=== PATIENT | female | born 1955 | race Caucasian/White ===

== ENCOUNTER 2018-05-27 10:19 | Emergency (ER) | payer SELFPAY ==
[2018-05-27] MEDS ORDERED: Adenosine 6 MG/2 ML VIAL ONE (10:37)
[2018-05-27 10:58] LABS: #Basophils 0.1 thou/uL (0.0-0.2); #Eosinphils 0.4 thou/uL (0.0-0.7); #Lymphocytes 2.5 thou/uL (1.20-3.40); #Monocytes 0.7 thou/uL (0.11-0.59); #Neutrophils 4.3 thou/uL (1.40-6.50); %Basophils 0.9 % (0.0-1.0); %Eosinophils 4.7 % (0.0-10.0); %Lymphocytes 31.6 % (21.0-51.0); %Monocytes 8.7 % (0.0-10.0); %Neutrophils 54.1 % (42.0-75.0); Mean Corpuscular HGB CONC 33.4 g/dL (32.0-36.0); Mean Corpuscular Hemoglobin 28.4 pg (27.0-31.0); Mean Corpuscular Volume 85.2 fL (78.0-98.0); Platelet Count 297 thou/uL (130-400); RBC Distribution Width 11.5 % (11.5-14.5); Red Blood Cell (RBC) Count 5.26 mill/uL (4.20-5.40); White Blood Cell (WBC) Count 7.9 thou/uL (4.8-10.8)
[2018-05-27 11:00] LABS: ALT (SGPT) 26 U/L (8-55); AST (SGOT) 21 U/L (5-34); Albumin 4.6 g/dL (3.4-4.8); Alkaline Phosphatase 86 U/L (40-150); Anion Gap 15 mmol/L (10-20); BUN (Urea Nitrogen) 12 mg/dL (9.8-20.1); Bilirubin, Total 0.9 mg/dL (0.2-1.2); Calc. Creatinine Clearance 0 mL/min (70-130); Carbon Dioxide 23 mmol/L (23-31); Chloride 104 mmol/L (98-107); Estimated GFR-MDRD 82; Globulin 3.2 g/dL (2.4-3.5); Glucose 113 mg/dL (80-115); Potassium 3.8 mmol/L (3.5-5.1); Protein, Total 7.8 g/dL (6.0-8.3); Sodium 138 mmol/L (136-145)
[2018-05-27 11:03] LABS: Troponin I 0.014 ng/mL (< 0.028)
[2018-05-27 11:07] LABS: INR-International Normal Ratio 0.9; PTT 24.6 SEC (22.9-36.1); Prothrombin Time 12.1 SEC (12.0-14.7)
[2018-05-27 11:14] LABS: CK (CPK) 74 U/L (29-168)
[2018-05-27 11:17] LABS: CKMB 1.7 ng/mL (0-6.6)
[2018-05-27 11:39] LABS: Thyroid Stimulating Hormone 0.1348 uIU/mL (0.35-4.94)
--- NOTE | 2018-05-27 12:50 | RAD ---
PA AND LATERAL CHEST XRAY: DATE: 05/27/2018. History Chest pain. COMPARISON: 10/11/2014. FINDINGS: Cardiac silhouette is mildly enlarged. The pulmonary vasculature is within normal limits. Surgical clips again overlie the left axillary region. Vascular calcifications are seen in the thoracic aorta . There are surgical clips overlying the left breast with deformity of the left breast probably rela radha to prior lumpectomy. IMPRESSION: 1. No acute cardiopulmonary process. 2. Cardiomegaly. POS: [id number]
[2018-05-27 16:01] LABS: Free T4 (Free Thyroxine) 1.23 ng/dL (0.70-1.48)
== END 2018-05-27 12:12 | disposition short-term general hospital (02) ==
LOC: MADERS 10:19
DX: I47.1 Supraventricular tachycardia (principal); I10 Essential (primary) hypertension; Z79.899 Other long term (current) drug therapy
CPT/HCPCS: 71046; 80053; 82550; 82553; 84439; 84443; 84484; 85025; 85610; 85730; 93005; 96374; J0153